=== PATIENT | male | born 1940 | race Caucasian/White ===

== ENCOUNTER 2016-10-19 10:06 | Emergency (ER) | payer MEDICARE ==
[~2016-10-19] VITALS: Ht 177.8 cm; Wt 95.0 kg
[~2016-10-19 10:06] MED LIST: AMLODIPINE10 MG PO; CLONIDINE0.2 MG OR; CO Q-10200 MG OR; ECOTRIN325 MG OR; FISH OIL1000 MG OR; HYDROCHLOROT25 MG OR; LISINOPRIL20 M1 PO; METOPROLOL50 MG OR; PLAVIX75 MG PO; SIMVASTATIN40 MG OR; SPIRIVA IN; SYMBICORT1 AE1 IN; XALATAN0.005 % OU
[2016-10-19] MEDS ORDERED: METO50TA52 PO (10:15)
[2016-10-19] MEDS ORDERED: ASPIRIN EC81 MG PO (10:16)
[2016-10-19] MEDS ORDERED: D3 20002000 UNIT PO (10:17)
[2016-10-19 10:46] LABS: HEMATOCRIT 45.1 % (39.0-50.0); HEMOGLOBIN 15.6 g/dl (14.0-18.0); IMMATURE GRANULOCYTES 0.4 % (0.0-1.0); MEAN CELL VOLUME 85.4 fL CALC (80.0-100.0); MEAN CORPUSCULAR HGB 29.5 pG CALC (26.0-32.0); MEAN CORPUSCULAR HGB CONC 34.6 g/L CALC (32.0-36.0); NEUT# 5.16 thou/uL (1.82-7.42); RED BLOOD COUNT 5.28 mill/uL (4.70-6.10); RED CELL DISTRI WIDTH 13.1 % (11.5-15.5)
[2016-10-19 11:02] LABS: ALBUMIN 4.8 g/dL (3.2-5.0); ALKALINE PHOSPHATASE 76 u/l (38-126); ANION GAP 17 (6-22 (CALC)); BUN 14 mg/dL (8-23); BUN/CREATININE RATIO 14 (12-20 (CALC)); CALCIUM 9.9 mg/dL (8.4-10.2); CARBON DIOXIDE 28 mmol/l (22-30); CHLORIDE 99 mmol/l (95-108); GFR > 60 ML/MIN (>=60 (CALC)); GFR FOR AFR.AMER. > 60 ML/MIN (>=60 (CALC)); GLUCOSE 92 mg/dL (82-115); POTASSIUM 3.9 mmol/l (3.5-5.1); SGOT/AST 35 u/l (19-48); SGPT/ALT 24 u/l (11-66); SODIUM 139 mmol/l (137-146); TOTAL PROTEIN 8.6 g/dL (6.3-8.2)
[2016-10-19 11:08] LABS: INTERNATIONAL NORMALIZED RATIO 0.9 RATIO (0.7-1.3); PROTHROMBIN TIME 10.1 SECONDS (9.0-12.5)
[2016-10-19 11:12] LABS: MYOGLOBIN 74 ng/mL (0 - 121)
[2016-10-19 11:24] VITALS: BP 225/95
== END 2016-10-19 11:25 | disposition short-term general hospital (02) ==
LOC: ED 10:06
PROVIDERS: Emergency Medicine
DX: I63.9 Cerebral infarction, unspecified (principal); R29.810 Facial weakness; R47.81 Slurred speech; I10 Essential (primary) hypertension; R29.702 NIHSS score 2